=== PATIENT | male | born 1960 | race Caucasian/White ===

== ENCOUNTER 2024-02-23 09:51 | Emergency (ER) | payer BC, SELFPAY ==
[2024-02-23 09:53] VITALS: BP 167/98
--- NOTE | 2024-02-23 11:13 | ED.GENMED ---
History of Present Illness
General
Chief Complaint: Ear Problem
Source: patient
Exam Limitations: none
Time Seen by Provider: 02/23/24 11:01
History of Present Illness
History of Present Illness:
63-year-old male with history of hypertension hyperlipidemia borderline diabetes presents with worsening right ear pain over the past week to 2 weeks. He was seen at an urgent care yesterday. He states a wick was placed and started on drops. He
now notes increased pain to the area around his ear and underneath his ear. Hurts to turn his head and to swallow. No chills or sweats. No headache. No rash. No other complaints at this time
Past History
Past History
ED Past Medical History: Other
ED Past Surgical History: Other
Social History
Tobacco: Smoker
Living: with family
Employment: Employed
Phy Exam
Physical Exam
Physical Exam:
General: Well-appearing male no acute respiratory distress
HEENT: Normocephalic atraumatic right ear is swollen the external canal is within wick. He is tender to the inferior auricular area as well as posterior auricular area. No trismus. Posterior pharynx without asymmetry no drooling
Heart: Regular rate and rhythm no murmur
Lungs: Clear no wheeze
Course
Orders/Labs/Results
Orders:
Orders
02/23/24 11:10
CT Neck With Iv Contrast Urgent
Comment:
Reason For Exam: right neck swelling and ear pain
Ketorolac [Toradol] 15 mg IV NOW STA
02/23/24 11:37
Complete Blood Count/With Diff Urgent
Comprehensive Metabolic Panel Urgent
Abnormal Lab Results
02/23/24
11:37
WBC 12.6 H 10^3/uL
(4.8-10.8)
Abs Immat Gran (auto) 0.1 H 10^3/uL
(0-0.05)
Absolute Neuts (auto) 10.0 H 10^3/uL
(1.4-6.5)
Absolute Monos (auto) 0.8 H 10^3/uL
(0.1-0.6)
Immature Gran % 0.6 H %
(0-0.5)
Neutrophils % 79.0 H %
(42.2-75.2)
Lymphocytes % 12.7 L %
(20.5-51.1)
Glucose 154 H mg/dl
(70-99)
02/23/24 11:37
02/23/24 11:37
Vital Signs
Initial and Last Documented VS:
Initial Vital Signs
Temp Pulse Resp BP Pulse Ox
98.6 F 71 16 167/98 98
02/23/24 09:53 02/23/24 09:53 02/23/24 09:53 02/23/24 09:53 02/23/24 09:53
Last Documented Vital Signs
Temp Pulse Resp BP Pulse Ox
98.6 F 71 16 167/98 98
02/23/24 09:53 02/23/24 09:53 02/23/24 09:53 02/23/24 09:53 02/23/24 09:53
MDM/Problems Addressed
Differential Diagnosis Includes:
Right ear pain. Consider external otitis versus mastoiditis versus abscess.
Will check CT of neck with IV contrast. Labs pending. Toradol ordered for pain
*Critical Care Note
Total Time (30-74mins, 75-104mins- exclusive of procedures): Not Applicable
Update Note
Update Note:
CT shows no deep space infection or abscess. Patient feeling somewhat better after Toradol. Will add oral antibiotics to the drops he is taking. No indication for admission. No signs of mastoiditis or deep space infection.
ED Attending Note
-
Portions of this chart may have been created with voice recognition software.� Occasional wrong word or��sound alike� substitutions may have occurred due to the inherent limitations of voice recognition software.
Discharge Plan
Departure
Patient Disposition: Home (Routine Discharge)
Date of Disposition: 02/23/24
Time of Disposition: 13:55
Patient with high blood pressure during this ER visit?: No
Discharge Problem:
External otitis
Instructions: Outer Ear Infection (DC)
Prescriptions:
New
amoxicillin-pot clavulanate 875-125 mg tablet
1 tab PO BID Qty: 14 0RF
No Action
bupropion HCl [Wellbutrin XL] 150 MG tablet extended release 24 hr
300 mg PO DAILY
atorvastatin 80 MG tablet
80 mg PO DAILY
metoprolol succinate [Toprol XL] 50 MG tablet extended release 24 hr
50 mg PO DAILY
amlodipine 10 MG tablet
10 mg PO DAILY
dextroamphetamine-amphetamine [Adderall] 20 MG tablet
20 mg PO DAILY
sennosides [senna] 1 TABLET tablet
2 tab PO BID 0RF
acetaminophen [Tylenol Extra Strength] 500 MG tablet
1,000 mg PO Q6H 0RF
cyclobenzaprine 10 MG tablet
10 mg PO HS Qty: 0 0RF
oxycodone 5 MG tablet
5 mg PO Q4HPRN PRN (Reason: moderate-severe pain) Qty: 35 0RF
Rx Instructions:
1 tablet moderate jasmin or 2 if pain severe
dx [facility]-fusion
ongoing therapy
aspirin 325 MG tablet,delayed release (DR/EC)
325 mg PO DAILY Qty: 1 0RF
Rx Instructions:
RESUME OCTOBER 05
clopidogrel 75 MG tablet
75 mg PO DAILY Qty: 1 0RF
Rx Instructions:
RESUME OCTOBER 05
tramadol 50 MG tablet
50 mg PO TID Qty: 21 0RF
Rx Instructions:
dx [facility]-fusion
ongoing therapy
Referrals:
UNKNOWN - PT DOES,NOT KNOW [Family Provider] -
Activity Restrictions/Additional Instructions:
Use antibiotics as directed. Continue with ibuprofen or Tylenol for pain. Return if worse otherwise follow-up with your doctor
Interventions
Interventions:
*Risk Screen - Suicide Last Done: 02/23/24 09:53
*General Assessment Last Done: 02/23/24 09:53
*Neglect/Abuse Screening Last Done: 02/23/24 09:53
ED- Fall Risk Assessment Last Done: 02/23/24 12:38
*ED COVID-19 Vaccine History Last Done: 02/23/24 12:37
Discharge Date and Time
Print Language: CROATIAN
[2024-02-23] MEDS: TORADOL 15 MG IV (11:33)
[2024-02-23 11:49] LABS: % Basophils 0.4 % (0-2); % Eosinophils 1.1 % (0-6); % Immature Granulocytes 0.6 % (0-0.5); % Lymphocytes 12.7 % (20.5-51.1); % Monocytes 6.2 % (1.7-9.3); Absolute Basophils 0.1 10^3/uL (0-0.2); Absolute Eosinophils 0.1 10^3/uL (0-0.7); Absolute Immature Granulocytes 0.1 10^3/uL (0-0.05); Absolute Lymphocytes 1.6 10^3/uL (1.2-3.4); Absolute Monocytes 0.8 10^3/uL (0.1-0.6); Hematocrit 46.1 % (39.0-52.0); Hemoglobin 16.1 g/dL (13.0-18.0); Mean Corp Hgb Conc. 34.9 g/dL (33.0-37.0); Mean Corpuscular Volume 85.8 fL (80.0-94.0); Mean Platelet Volume 9.5 fL (7.4-10.4); Nucleated Red Blood Cells % 0 % (-); Platelet Count 186 10^3/uL (130-400); Red Blood Cell Count 5.37 10^6/uL (4.70-6.10); Red Cell Dist. Width 12.7 % (11.5-14.5); White Blood Cell Count 12.6 10^3/uL (4.8-10.8)
[2024-02-23 12:01] LABS: ALT (SGPT) 43 U/L (0-50); AST (SGOT) 22 U/L (17-59); Albumin 4.3 g/dl (3.5-5.0); Alkaline Phosphatase 88 U/L (38-126); Blood Urea Nitrogen 11 mg/dl (9-20); Calcium 8.9 mg/dl (8.4-10.2); Carbon Dioxide 26 mmol/L (22-30); Chloride 105 mmol/L (98-107); Glucose 154 mg/dl (70-99); Potassium 4.1 mmol/L (3.5-5.1); Sodium 140 mmol/L (135-145); Total Bilirubin 0.6 mg/dl (0.2-1.3); Total Protein 6.8 g/dl (6.3-8.2); eGFR > 60.00
[2024-02-23 14:10] VITALS: BP 136/74
== END 2024-02-23 14:14 | disposition home or self-care (01) ==
LOC: EMR 09:51
PROVIDERS: Physician Assistant; EMERGENCY PHYSICIAN Emergency Medicine
DX: H60.91 Unspecified otitis externa, right ear (principal); I10 Essential (primary) hypertension; E78.5 Hyperlipidemia, unspecified; F17.200 Nicotine dependence, unspecified, uncomplicated
CPT/HCPCS: 96374; 99284; 70491; 80053; 85025; Q9967

== ENCOUNTER → 2024-02-26 13:46 | Outpatient (REF) | payer BC, SELFPAY | LOC: HWRAD 13:46 | PROVIDERS: ATTENDING PHYSICIAN Nurse Practitioner Adult Health | DX: Z87.891 Personal history of nicotine dependence (principal) | CPT/HCPCS: 71271 ==